=== PATIENT | male | born 1965 | race African-American/Black ===

== ENCOUNTER 2022-04-26 21:34 | Inpatient (IN) | payer OTHER ==
[~2022-04-26] VITALS: Ht 180.3 cm; Wt 83.0 kg
[2022-04-26] MEDS ORDERED: HYDRALAZINE HCL 20 MG/ML VIAL IV STA (22:11)
[2022-04-26] MEDS ORDERED: ACETAMINOPHEN 325 MG TAB PO ONE (22:15)
[2022-04-26] MEDS ORDERED: CLONIDINE HCL 0.1 MG TAB PO ONE (22:15)
[2022-04-26] MEDS ORDERED: ASPIRIN 81 MG CHEW TAB PO ONE (23:30)
[2022-04-26] MEDS ORDERED: DEXTROSE 50% SYRINGE 50 ML IV PRN (23:30)
[2022-04-26] MEDS ORDERED: CLONIDINE HCL 0.1 MG TAB ONE (23:35)
[2022-04-26] MEDS ORDERED: HYDRALAZINE HCL 20 MG/ML VIAL ONE (23:35)
[2022-04-26] MEDS ORDERED: ACETAMINOPHEN 325 MG TAB ONE (23:36)
[2022-04-27] VITALS (10 sets, daily range): BP systolic 128–177; BP diastolic 87–105
[2022-04-27] MEDS ORDERED: ALBUTEROL/IPRATROPIUM 3 ML NEB NEB PRN (00:15)
[2022-04-27] MEDS ORDERED: ONDANSETRON HCL INJ 2MG/ML 2ML 2 MG/ML VIAL IV PRN (00:15)
[2022-04-27] MEDS ORDERED: MELATONIN 5 MG TABLET PO PRN (00:15)
[2022-04-27] MEDS ORDERED: DOCUSATE SODIUM 100 MG CAP PO PRN (00:15)
[2022-04-27] MEDS ORDERED: BENZONATATE 100 MG CAP PO PRN (00:15)
[2022-04-27] MEDS ORDERED: LIDOCAINE 4% PATCH TP PRN (00:15)
[2022-04-27] MEDS ORDERED: DEXTROSE 50% SYRINGE 50 ML IV PRN (00:15)
[2022-04-27] MEDS ORDERED: DIPHENHYDRAMINE HCL 25 MG CAP PO PRN (00:15)
[2022-04-27] MEDS ORDERED: SIMETHICONE 80 MG CHEW PO PRN (00:15)
[2022-04-27] MEDS ORDERED: HYDRALAZINE HCL 20 MG/ML VIAL IV PRN (00:15)
[2022-04-27] MEDS ORDERED: ACETAMINOPHEN 325 MG TAB PO PRN (00:15)
[2022-04-27] MEDS: NIFEDIPINE CR 30 MG TAB PO SCH ×2 (01:18→09:11)
[2022-04-27] MEDS: INSULIN REGULAR, HUMAN 100 UNIT/1 ML SQ SCH ×5 (01:19→22:13)
[2022-04-27] MEDS ORDERED: CARVEDILOL25 MG PO (01:43)
[2022-04-27] MEDS ORDERED: DOXEPIN HCL25 MG PO (01:43)
[2022-04-27] MEDS ORDERED: BIKTARVY 50-201 EACH PO (01:43)
[2022-04-27] MEDS ORDERED: FUROSEMIDE20 MG PO (01:43)
[2022-04-27] MEDS ORDERED: GABAPENTIN800 MG PO (01:43)
[2022-04-27] MEDS ORDERED: VITAMIN D250 MCG PO (01:43)
[2022-04-27] MEDS ORDERED: LEVEMIR100 UNIT/1 SC ×2 (01:43)
[2022-04-27] MEDS ORDERED: SILDENAFIL CIT100 MG PO (01:43)
[2022-04-27] MEDS ORDERED: AMLODIPINE BESY10 MG PO (01:43)
[2022-04-27] MEDS ORDERED: ATORVASTATIN CA40 MG PO (01:43)
[2022-04-27] MEDS ORDERED: HYDROXYZINE HCL25 MG PO (01:43)
[2022-04-27 06:58] LABS: BASOPHILS # (AUTO) 0.1 (0.0-0.1); BASOPHILS % 0.9 % (0.0-1.0); EOSINOPHILS # (AUTO) 0.3 (0.0-0.4); EOSINOPHILS % 3.2 % (0.0-6.0); HEMATOCRIT 25.2 % (38.2-49.6); HEMOGLOBIN 8.2 g/dL (14.0-18.0); LYMPHOCYTES # (AUTO) 2.1 (1.0-3.2); LYMPHOCYTES % 22.5 % (18.0-39.1); MEAN CORPUSCULAR HEMOGLOBIN 26.4 pg (28-32); MEAN CORPUSCULAR HGB CONC 32.5 g/dL (31-35); MONOCYTES # (AUTO) 0.6 (0.2-0.8); NEUTROPHILS # (AUTO) 6.1 (2.1-6.9); NEUTROPHILS % 66.9 % (38.7-80.0); PLATELET COUNT 265 x10e3/uL (140-360); RED BLOOD COUNT 3.11 x10e6/uL (4.3-5.7); RED CELL DISTRIBUTION WIDTH 16.4 % (11.7-14.4)
[2022-04-27 07:19] LABS: CHOL/HDL RATIO 4.9 (3.9-4.7); MAGNESIUM 1.5 MG/DL (1.3-2.1); PHOSPHORUS 6.1 MG/DL (2.3-4.7)
[2022-04-27 07:35] LABS: ANION GAP 15.6 mmol/L (8-16); CALCIUM 8.2 mg/dL (8.4-10.2); CREATININE, SERUM 6.14 mg/dL (0.72-1.25); POTASSIUM 3.6 mmol/L (3.5-5.1)
[2022-04-27 07:42] LABS: THYROID STIMULATING HORMONE 1.159 uIU/mL (0.350-4.940)
[2022-04-27 07:57] LABS: CREATINE KINASE MB 1.7 ng/mL (0-5.0)
[2022-04-27] MEDS ORDERED: CARVEDILOL 12.5 MG TAB PO SCH (09:00)
[2022-04-27] MEDS: PANTOPRAZOLE SOD 40 MG TABEC PO SCH (09:10)
[2022-04-27] MEDS: CARVEDILOL 12.5 MG TAB PO SCH ×2 (09:10→17:30)
[2022-04-27] MEDS: HYDRALAZINE HCL 25 MG TAB PO SCH ×3 (09:11→22:09)
[2022-04-27] MEDS ORDERED: FUROSEMIDE INJ 10 MG/ML 4 ML VIAL IV ONE ×2 (11:15→17:00)
[2022-04-27 14:22] LABS: CREATINE KINASE MB 1.6 ng/mL (0-5.0)
[2022-04-27] MEDS ORDERED: ATORVASTATIN 40 MG TAB PO SCH (21:00)
[2022-04-28 00:38] VITALS: BP 146/84
[2022-04-28 04:00] VITALS: BP 151/94
[2022-04-28 08:25] VITALS: BP 147/95
[2022-04-28] MEDS: PANTOPRAZOLE SOD 40 MG TABEC PO SCH (08:42)
[2022-04-28] MEDS: CALCIUM CARBONATE 500 MG CHEWABLE TABS PO SCH ×3 (08:44→16:31)
[2022-04-28] MEDS: NIFEDIPINE CR 30 MG TAB PO SCH (08:44)
[2022-04-28] MEDS: CARVEDILOL 12.5 MG TAB PO SCH ×2 (08:45→16:32)
[2022-04-28] MEDS: HYDRALAZINE HCL 25 MG TAB PO SCH ×2 (08:46→16:33)
[2022-04-28] MEDS: INSULIN REGULAR, HUMAN 100 UNIT/1 ML SQ SCH ×2 (08:48→12:18)
[2022-04-28 08:56] VITALS: BP 147/95
[2022-04-28] MEDS ORDERED: FUROSEMIDE 40 MG TAB PO SCH (09:00)
[2022-04-28] MEDS ORDERED: HEPARIN SOD (PORCINE) 5,000 UNIT/ML VIAL SC SCH (09:00)
[2022-04-28 12:20] VITALS: BP 144/92
[2022-04-28] MEDS ORDERED: ONDANSETRON HCL 4 MG ORAL DISINTEGRATING TAB PO PRN (12:30)
[2022-04-28 16:17] LABS: BASOPHILS # (AUTO) 0.1 (0.0-0.1); BASOPHILS % 1.2 % (0.0-1.0); EOSINOPHILS # (AUTO) 0.2 (0.0-0.4); EOSINOPHILS % 3.1 % (0.0-6.0); HEMATOCRIT 25.9 % (38.2-49.6); HEMOGLOBIN 8.3 g/dL (14.0-18.0); LYMPHOCYTES # (AUTO) 1.8 (1.0-3.2); LYMPHOCYTES % 23.7 % (18.0-39.1); MEAN CORPUSCULAR HEMOGLOBIN 26.4 pg (28-32); MEAN CORPUSCULAR VOLUME 82.5 fL (81-99); MONOCYTES # (AUTO) 0.5 (0.2-0.8); MONOCYTES % 6.3 % (4.4-11.3); NEUTROPHILS # (AUTO) 4.9 (2.1-6.9); NEUTROPHILS % 65.3 % (38.7-80.0); PLATELET COUNT 302 x10e3/uL (140-360); RED BLOOD COUNT 3.14 x10e6/uL (4.3-5.7); RED CELL DISTRIBUTION WIDTH 16.5 % (11.7-14.4)
[2022-04-28 16:30] LABS: ANION GAP 17.2 mmol/L (8-16); CALCIUM 8.4 mg/dL (8.4-10.2); CREATININE, SERUM 6.74 mg/dL (0.72-1.25); POTASSIUM 4.2 mmol/L (3.5-5.1)
[2022-04-28] MEDS ORDERED: INSULIN LISPRO 100 UNIT/1 ML 3ML VIAL SQ SCH ×3 (16:30→17:00)
[2022-04-28 16:46] LABS: FREE T4 (FREE THYROXINE) 0.92 ng/dL (0.8-1.8); THYROID STIMULATING HORMONE 0.779 uIU/mL (0.350-4.940)
[2022-04-28 16:55] VITALS: BP 147/94
[2022-04-28] MEDS ORDERED: INSULIN GLARGINE 100 UNITS/ML VIAL SQ SCH ×2 (21:00)
[2022-04-29] MEDS ORDERED: INSULIN GLARGINE 100 UNITS/ML VIAL SQ SCH (09:00)
== END 2022-04-28 18:08 | disposition home or self-care (01) | DRG 280 ==
LOC: FSED 21:43 → ERHOLD 23:20 → MED/SURG 04-27 00:28
PROVIDERS: ADMIT Internal Medicine; ATTEND Internal Medicine
DX: I13.2 Hypertensive heart and chronic kidney disease with heart failure and with stage 5 chronic kidney disease, or end stage renal disease (principal); I50.31 Acute diastolic (congestive) heart failure; I21.A1 Myocardial infarction type 2; N18.5 Chronic kidney disease, stage 5; N17.9 Acute kidney failure, unspecified; I16.1 Hypertensive emergency; E87.20 Acidosis, unspecified; B20 Human immunodeficiency virus [HIV] disease; E11.22 Type 2 diabetes mellitus with diabetic chronic kidney disease; F17.210 Nicotine dependence, cigarettes, uncomplicated; D63.1 Anemia in chronic kidney disease; E87.70 Fluid overload, unspecified; M89.8X9 Other specified disorders of bone, unspecified site; E78.5 Hyperlipidemia, unspecified; E11.42 Type 2 diabetes mellitus with diabetic polyneuropathy; Z20.822 Contact with and (suspected) exposure to COVID-19; Z91.199 Patient's noncompliance with other medical treatment and regimen due to unspecified reason; Z79.4 Long term (current) use of insulin
CPT/HCPCS: 36415; 71046; 76770; 80048; 80053; 80061; 81003; 82550; 82553; 82948; 83036; 83735; 83880; 84100; 84439; 84443; 84484; 85025; 93005; 93306; 96374; 99284; J0360; J1644; J1817; J1940

== ENCOUNTER 2022-05-19 13:01 | Emergency (ER) | payer OTHER ==
[~2022-05-19] VITALS: Ht 180.3 cm; Wt 83.0 kg
[~2022-05-19 13:01] MED LIST: AMLODIPINE BESY10 MG PO; ATORVASTATIN CA40 MG PO; BIKTARVY 50-201 EACH PO; CARVEDILOL25 MG PO; DOXEPIN HCL25 MG PO; FUROSEMIDE20 MG PO; GABAPENTIN800 MG PO; HYDROXYZINE HCL25 MG PO; LEVEMIR100 UNIT/1 SC; SILDENAFIL CIT100 MG PO; VITAMIN D250 MCG PO
== END 2022-05-19 14:18 | disposition home or self-care (01) ==
LOC: ER 14:16
DX: F41.9 Anxiety disorder, unspecified (principal); I12.9 Hypertensive chronic kidney disease with stage 1 through stage 4 chronic kidney disease, or unspecified chronic kidney disease; E11.22 Type 2 diabetes mellitus with diabetic chronic kidney disease; N18.9 Chronic kidney disease, unspecified; I50.9 Heart failure, unspecified
CPT/HCPCS: 99282